=== PATIENT | male | born 1955 | race Caucasian/White ===

== ENCOUNTER 2025-08-03 13:58 | Emergency (ER) | payer MEDICARE, OTHER ==
[~2025-08-03] VITALS: Ht 190.5 cm; Wt 79.4 kg
[2025-08-03] MEDS ORDERED: LIDOCAINE 1%-EPI 1:100,000 20 ML VIAL ONE (14:30)
[2025-08-03] MEDS ORDERED: TDAP [DIPH/PERTUSSIS/TET] 0.5 ML VIAL IM ONE (14:47)
[2025-08-03] MEDS: TDAP [DIPH/PERTUSSIS/TET] 0.5 ML VIAL IM ONE (14:54)
[2025-08-03] MEDS: BACI/NEOM/POLY B OINT PKT 1 UDPKT PACKET TP ONE (15:37)
[2025-08-03 17:37] VITALS: BP 150/78; TEMP 98.3; O2SAT 100
== END 2025-08-03 17:42 | disposition home or self-care (01) ==
LOC: ER 14:06
DX: S01.01XA Laceration without foreign body of scalp, initial encounter (principal); G20.A1 Parkinson's disease without dyskinesia, without mention of fluctuations; I10 Essential (primary) hypertension; W19.XXXA Unspecified fall, initial encounter; Y93.89 Activity, other specified; Y92.89 Other specified places as the place of occurrence of the external cause; Y99.8 Other external cause status
CPT/HCPCS: 12004; 70450; 72125; 99284; A6403; J3490; 90715

== ENCOUNTER 2025-09-20 12:31 | Emergency (ER) | payer MEDICARE, OTHER ==
[~2025-09-20] VITALS: Ht 190.5 cm; Wt 74.8 kg
[2025-09-20 13:51] VITALS: BP 142/83; TEMP 98.2; O2SAT 99
== END 2025-09-20 13:53 ==
LOC: ER 12:43
DX: L89.159 Pressure ulcer of sacral region, unspecified stage (principal); I10 Essential (primary) hypertension; G20.A1 Parkinson's disease without dyskinesia, without mention of fluctuations; Z91.048 Other nonmedicinal substance allergy status